=== PATIENT | male | born 1955 | race Caucasian/White ===

== ENCOUNTER 2022-09-10 15:14 | Emergency (ER) | payer OTHER, SELFPAY ==
[2022-09-10 15:51] VITALS: BP 142/84; PULSE 78; RESP 14; TEMP 36.8; O2SAT 100; BMI 33.2
--- NOTE | 2022-09-10 17:39 | XR_ITS ---
The [address] [address] Patient Name: DWAYNE POSADA MRN: [id number] date: 1955 Sex: M Assigned Patient Location: ER Current Patient Location: Accession/Order Number: [id number] Exam Date: 09/10/2022 17:55 Report Date: 09/10/2022 19:20 At the request of: MONROE PARRY Procedure: XR hand RT min 3V IMAGES REVIEWED: XR hand RT min 3V COMPARISON: None available. CLINICAL INDICATION: laceration FINDINGS/IMPRESSION: Soft tissue laceration involving the radial-volar aspect of the distal third digit. No significant radiopaque retained foreign bodies in the soft tissues. No evidence of acute osseous abnormality. 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 Moderate degenerative change of scattered interphalangeal joints. Positive ulnar variance. Electronically authenticated by: OBDULIA MAO Date: 09/10/2022 19:20
[2022-09-10] MEDS: ONDANSETRON 4 MG RAPDIS TABLET SL (18:06)
--- NOTE | 2022-09-10 18:27 | ED_ITS ---
Documented by User: Poonam Lorenz 09/10/22 18:39 HPI - General Adult General Chief complaint: Extremity Injury, Upper Stated complaint: CUT FINGER Time Seen by Provider: 09/10/22 17:21 Source: patient Mode of arrival: walk-in Limitations: no limitations History of Present Illness HPI narrative: 67-year-old male presents here chief complaint of a right middle finger laceration. 2 cm laceration across the dorsal aspect of the right middle finger at the distal PIP region.. 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 Dirt and debris are noted. Soft tissue exposed, controlled bleeding noted. Pedis states tetanus is up-to-date injury occurred just prior to arrival here in the hospital. Related Data Previous Rx's Medication Instructions Recorded cephalexin 500 mg capsule 500 mg PO BID 10 days #20 caps 09/10/22 Allergies Allergy/AdvReac Type Severity Reaction Status Date / Time No Known Drug Allergies Allergy Verified 09/10/22 15:50 Review of Systems ROS Narrative All Systems are negative except as noted/marked.All systems reviewed and otherwise negative PFSH PFSH Social History Smoking status: Former smoker Exam Narrative Exam Narrative: Nurses note and vital signs reviewed and patient is not hypoxic. General: The patient appears well and in no apparent distress. Patient is resting comfortably on cart. Skin: Warm, dry, no pallor noted. There is no rash noted. Head: Normocephalic, atraumatic Eye: Normal conjunctiva, no drainage, EOMI. PERRL Musculoskeletal: 2cm right middle finger laceration , full Range of motion, good capillary refill distally, remainder of extremities are unremarkable Neurological: A&O x4, normal speech Psychiatric: Cooperative Constitutional Vital Signs, click to edit/add: Last Vital Signs Temp 98.3 F 09/10/22 15:51 Pulse 78 09/10/22 15:51 Resp 14 09/10/22 15:51 BP 142/84 H 09/10/22 15:51 Pulse Ox 100 09/10/22 15:51 O2 Del Method Room Air 09/10/22 15:51 Course Vital Signs Vital signs: Vital Signs Temperature 98.3 F 09/10/22 15:51 Pulse Rate 78 09/10/22 15:51 Respiratory Rate 14 09/10/22 15:51 Blood Pressure 142/84 H 09/10/22 15:51 Pulse Oximetry 100 09/10/22 15:51 Oxygen Delivery Method Room Air 09/10/22 15:51 Temperature 98.3 F 09/10/22 15:51 Pulse Rate 78 09/10/22 15:51 Respiratory Rate 14 09/10/22 15:51 Blood Pressure 142/84 H 09/10/22 15:51 Pulse Oximetry 100 09/10/22 15:51 Oxygen Delivery Method Room Air 09/10/22 15:51 Medical Decision Making MDM Narrative Medical decision making narrative: Patient presented with chief laceration right middle finger. Area was anesthetized one percent lidocaine solution locally ?2 mL. 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 Wound was explored small amount of debris noted cleaned and irrigated well. X-ray show no acute foreign bodies. Area was then Reprexain 4-0 Ethilon suture ?6 simple sutures. Patient tolerated well discharged home with laceration instructions will follow-up with occupational health in ten days. Placed on Keflex medicated here with Keflex as well. She is discharged home no questions at discharge Discharge Plan Discharge Chief Complaint: Extremity Injury, Upper Clinical Impression: Laceration of finger Patient Disposition: Home, Self-Care Time of Disposition Decision: 18:25 Condition: Good Prescriptions / Home Meds: New cephalexin 500 mg capsule 500 mg PO BID 10 Days Qty: 20 0RF Instructions: Finger Laceration (ED) Additional Instructions: follow up with occupational health Stand Alone Forms: Portal Instructions Referrals: Physician,Non-Staff, [Primary Care Provider] - 1 week Discharge Date/Time: 09/10/22 18:41 Documented by User: Daniele Vázquez MD 09/10/22 20:07 HPI - General Adult General Chief complaint: Extremity Injury, Upper Stated complaint: CUT FINGER Time Seen by Provider: 09/10/22 17:21 Related Data Previous Rx's Medication Instructions Recorded cephalexin 500 mg capsule 500 mg PO BID 10 days #20 caps 09/10/22 Allergies Allergy/AdvReac Type Severity Reaction Status Date / Time No Known Drug Allergies Allergy Verified 09/10/22 15:50 PFSH PFSH Social History Smoking status: Former smoker Exam Constitutional Vital Signs, click to edit/add: Last Vital Signs Temp 98.3 F 09/10/22 15:51 Pulse 78 09/10/22 15:51 Resp 14 09/10/22 15:51 BP 142/84 H 09/10/22 15:51 Pulse Ox 100 09/10/22 15:51 O2 Del Method Room Air 09/10/22 15:51 Course Vital Signs Vital signs: Vital Signs Temperature 98.3 F 09/10/22 15:51 Pulse Rate 78 09/10/22 15:51 Respiratory Rate 14 09/10/22 15:51 Blood Pressure 142/84 H 09/10/22 15:51 Pulse Oximetry 100 09/10/22 15:51 Oxygen Delivery Method Room Air 09/10/22 15:51 Temperature 98.3 F 09/10/22 15:51 Pulse Rate 78 09/10/22 15:51 Respiratory Rate 14 09/10/22 15:51 Blood Pressure 142/84 H 09/10/22 15:51 Pulse Oximetry 100 09/10/22 15:51 Oxygen Delivery Method Room Air 09/10/22 15:51 Medical Decision Making MDM Narrative Medical decision making narrative: Patient presented with chief laceration right middle finger. Area was anesthetized one percent lidocaine solution locally ?2 mL. 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 Wound was explored small amount of debris noted clean ed and irrigated well. X-ray show no acute foreign bodies. Area was then Reprexain 4-0 Ethilon suture ?6 simple sutures. Patient tolerated well discharged home with laceration instructions will follow-up with occupational health in ten days. Placed on Keflex medicated here with Keflex as well. She is discharged home no questions at discharge I, Dr Vázquez, have reviewed the above progress note and course of action in the ER; agree with the above. I have personally seen and evaluated this patient, gone over history and physical, and discussed disposition and treatment plan with the patient. Discharge Plan Discharge Chief Complaint: Extremity Injury, Upper Clinical Impression: Laceration of finger Patient Disposition: Home, Self-Care Time of Disposition Decision: 18:25 Condition: Good Prescriptions / Home Meds: New cephalexin 500 mg capsule 500 mg PO BID 10 Days Qty: 20 0RF Instructions: Finger Laceration (ED) Additional Instructions: follow up with occupational health Stand Alone Forms: Portal Instructions Referrals: Physician,Non-Staff, MD [Primary Care Provider] - 1 week Discharge Date/Time: 09/10/22 18:41
[2022-09-10] MEDS: CEPHALEXIN 500 MG CAPSULE PO (18:37)
== END 2022-09-10 18:41 | disposition home or self-care (01) ==
PROVIDERS: Emergency Provider Emergency Medicine
DX: S61.212A Laceration without foreign body of right middle finger without damage to nail, initial encounter (principal); W26.8XXA Contact with other sharp object(s), not elsewhere classified, initial encounter
CPT/HCPCS: 12001; 73130; 99283

== ENCOUNTER 2022-09-22 16:20 | Emergency (ER) | payer OTHER, SELFPAY ==
[2022-09-22 16:26] VITALS: BP 140/93; PULSE 78; RESP 16; TEMP 37.2; O2SAT 96
--- NOTE | 2022-09-22 16:33 | PC.NURSE ---
pt was here two weeks ago and had sutures placed on right hand middle finger. pt here today to have sutures removed. site looks clean and well approximated. no signs of infection.
--- NOTE | 2022-09-22 16:51 | ED.GENADUL1 ---
Documented by User: UGO Arellano 09/22/22 16:54 HPI - General Adult General Chief complaint: Recheck/Abnormal Lab/Rx Stated complaint: STITCHES REMOVAL Time Seen by Provider: 09/22/22 16:33 Source: patient Mode of arrival: walk-in Limitations: no limitations History of Present Illness HPI narrative: Patient is a 67-year-old male who presents to the emergency department for suture removal. He had six sutures placed in this emergency department for a finger laceration to the right middle finger in a work-related incident twelve days ago. He went to occupational health today for follow-up and suture removal as instructed but no provider is available and occupational health today and the patient was referred to the Emergency Room for suture removal. He states he was not given any further instructions from occupational health regarding his Worker's Comp. claim or any additional instructions. He has not been placing any antibiotic ointment on the area with the sutures. He was prescribed Keflex. He has not had any redness or drainage from the area. Related Data Previous Rx's Medication Instructions Recorded cephalexin 500 mg capsule 500 mg PO BID 10 days #20 caps 09/10/22 Allergies Allergy/AdvReac Type Severity Reaction Status Date / Time No Known Drug Allergies Allergy Verified 09/22/22 16:29 Review of Systems ROS Constitutional Denies: fever or chills Respiratory Denies: shortness of breath or cough Gastrointestinal Denies: nausea or vomiting Musculoskeletal Denies: back pain or neck pain Integumentary/Breast Denies: rash Hematologic/Lymphatic Denies: easy bruising [facility] Social History Smoking status: Former smoker Exam Narrative Exam Narrative: Gen.: Awake, alert, in no distress Head: Normocephalic, atraumatic ENT: Moist mucous membranes Respiratory: No respiratory distress Extremities: Moves extremities equally; right middle finger, distal phalanx with [address], distal phalanx is mildly edematous with scabbing noted over the sutures. No active drainage or redness noted Psych: Normal mood and affect Neuro: No focal neuro deficit Skin: Warm, dry, intact Constitutional Vital Signs, click to edit/add: Last Vital Signs Temp 98.9 F 09/22/22 16:26 Pulse 78 09/22/22 16:26 Resp 16 09/22/22 16:26 BP 140/93 H 09/22/22 16:26 Pulse Ox 96 09/22/22 16:26 O2 Del Method Room Air 09/22/22 16:26 Course Vital Signs Vital signs: Vital Signs Temperature 98.9 F 09/22/22 16:26 Pulse Rate 78 09/22/22 16:26 Respiratory Rate 16 09/22/22 16:26 Blood Pressure 140/93 H 09/22/22 16:26 Pulse Oximetry 96 09/22/22 16:26 Oxygen Delivery Method Room Air 09/22/22 16:26 Temperature 98.9 F 09/22/22 16:26 Pulse Rate 78 09/22/22 16:26 Respiratory Rate 16 09/22/22 16:26 Blood Pressure 140/93 H 09/22/22 16:26 Pulse Oximetry 96 09/22/22 16:26 Oxygen Delivery Method Room Air 09/22/22 16:26 Medical Decision Making MDM Narrative Medical decision making narrative: Shur-Clens and peroxide reuse to clean the area prior to suture removal. The sutures were embedded in the scabbed area and removing the sutures was moderately difficult. Six sutures were removed, there is no evidence of retained foreign material on reexamination after suture removal. No bleeding or dehiscence noted. Patient was recommended to use antibiotic ointment to the area for several days. Bacitracin and a Band-Aid were placed in the Emergency Room and the patient remains neurovascularly intact. He was instructed to call occupational health within the next week to see if there is any additional paperwork or instructions he should follow regarding his worker's comp claim. Return to the Emergency Room if symptoms change or worsen Medical Records Medical records reviewed: Yes I reviewed the patient's medical records Discharge Plan Discharge Chief Complaint: Recheck/Abnormal Lab/Rx Clinical Impression: Encounter for removal of sutures Patient Disposition: Home, Self-Care Time of Disposition Decision: 16:49 Condition: Good Prescriptions / Home Meds: No Action cephalexin 500 mg capsule 500 mg PO BID 10 Days Qty: 20 0RF Instructions: Stitches Removal (ED) Additional Instructions: Call occupational health for any additional paperwork/requirements in the next week Stand Alone Forms: Portal Instructions Referrals: [facility] [Outside] - 1 week Discharge Date/Time: 09/22/22 16:56 Documented by User: Carlee Johnson MD 09/22/22 17:34 HPI - General Adult General Chief complaint: Recheck/Abnormal Lab/Rx Stated complaint: STITCHES REMOVAL Time Seen by Provider: 09/22/22 16:33 Related Data Previous Rx's Medication Instructions Recorded cephalexin 500 mg capsule 500 mg PO BID 10 days #20 caps 09/10/22 Allergies Allergy/AdvReac Type Severity Reaction Status Date / Time No Known Drug Allergies Allergy Verified 09/22/22 16:29 PFSH PFSH Social History Smoking status: Former smoker Exam Constitutional Vital Signs, click to edit/add: Last Vital Signs Temp 98.9 F 09/22/22 16:26 Pulse 78 09/22/22 16:26 Resp 16 09/22/22 16:26 BP 140/93 H 09/22/22 16:26 Pulse Ox 96 09/22/22 16:26 O2 Del Method Room Air 09/22/22 16:26 Course Vital Signs Vital signs: Vital Signs Temperature 98.9 F 09/22/22 16:26 Pulse Rate 78 09/22/22 16:26 Respiratory Rate 16 09/22/22 16:26 Blood Pressure 140/93 H 09/22/22 16:26 Pulse Oximetry 96 09/22/22 16:26 Oxygen Delivery Method Room Air 09/22/22 16:26 Temperature 98.9 F 09/22/22 16:26 Pulse Rate 78 09/22/22 16:26 Respiratory Rate 16 09/22/22 16:26 Blood Pressure 140/93 H 09/22/22 16:26 Pulse Oximetry 96 09/22/22 16:26 Oxygen Delivery Method Room Air 09/22/22 16:26 Medical Decision Making MDM Narrative Medical decision making narrative: Shur-Clens and peroxide reuse to clean the area prior to suture removal. The sutures were embedded in the scabbed area and removing the sutures was moderately difficult. Six sutures were removed, there is no evidence of retained foreign material on reexamination after suture removal. No bleeding or dehiscence noted. Patient was recommended to use antibiotic ointment to the area for several days. Bacitracin and a Band-Aid were placed in the Emergency Room and the patient remains neurovascularly intact. He was instructed to call occupational health within the next week to see if there is any additional paperwork or instructions he should follow regarding his worker's comp claim. Return to the Emergency Room if symptoms change or worsen Attending physician attestation I have reviewed the mid-level documentation, agree with the documentation, medical decision making and treatment plan as outlined by the mid-level provider. Discharge Plan Discharge Chief Complaint: Recheck/Abnormal Lab/Rx Clinical Impression: Encounter for removal of sutures Patient Disposition: Home, Self-Care Time of Disposition Decision: 16:49 Condition: Good Prescriptions / Home Meds: No Action cephalexin 500 mg capsule 500 mg PO BID 10 Days Qty: 20 0RF Instructions: Stitches Removal (ED) Additional Instructions: Call occupational health for any additional paperwork/requirements in the next week Stand Alone Forms: Portal Instructions Referrals: [facility] [Outside] - 1 week Discharge Date/Time: 09/22/22 16:56
[2022-09-22] MEDS: BACITRACIN 0.9 GM PACKET 1 PACKET TOPICAL (16:55)
== END 2022-09-22 16:56 | disposition home or self-care (01) ==
PROVIDERS: Emergency Provider Emergency Medicine
DX: S61.212D Laceration without foreign body of right middle finger without damage to nail, subsequent encounter (principal); W45.8XXD Other foreign body or object entering through skin, subsequent encounter
CPT/HCPCS: 99282